=== PATIENT | male | born 1980 | race Caucasian/White ===

== ENCOUNTER → 2019-03-21 17:15 | Outpatient (CLI) | payer BC, SELFPAY ==
[2019-03-21 17:43] LABS: Microscopic, Urine URINE MICROSCOPIC (MICROSCOPIC)
[2019-03-21 18:02] LABS: Appearance,Urine CLEAR (Clear); Basophils % 0.1 % (0.1-2.0); Bilirubin,Urine Negative (Negative); Blood, Urine Negative (Negative); Color,Urine YELLOW (Yellow); Eosinophils % 0.3 % (0.1-12.0); Glucose,Urine (UA) Negative (Negative); Hematocrit 48.6 % (42.0-52.0); Hemoglobin 16.2 g/dL (14.1-18.0); Ketones,Urine TRACE (Negative); Leukocyte Esterase,Urine Negative (Negative); Lymphocytes # 1.1 K/mm3 (0.7-4.5); Lymphocytes % 10.2 % (10-50); Mean Corpuscular HGB Conc 33.4 g/dL (31.8-35.4); Mean Corpuscular Hemoglobin 33.7 pg (27.0-31.2); Mean Corpuscular Volume 101.1 fl (80-94); Mean Platelet Volume 8.3 fl (7.4-10.4); Monocytes # 0.7 K/mm3 (0.1-1.0); Monocytes % 6.4 % (1.7-9.3); Neutrophils # 8.7 K/mm3 (1.8-7.8); Nitrate,Urine Negative (Negative); Platelet Count 324 K/mm3 (142-424); Protein,Urine Negative (Negative); Red Blood Count 4.81 M/mm3 (4.60-6.20); Red Cell Distribution Width 12.9 % (11.5-17.5); Specific Gravity, Urine 1.015 (1.005-1.030); Urobilinogen,Urine 0.2 EU/dl (0.2); White Blood Count 10.5 K/mm3 (4.8-10.8)
[2019-03-21 18:17] LABS: Bacteria,Urine Trace /lpf; Squamous Epithelial Cell,Urine Occasional #/hpf (0-5); WBC,Urine Occasional #/hpf (0-3)
[2019-03-21 18:31] LABS: Alanine Aminotransferase 32 U/L (12-78); Albumin Level 4.4 gm/dL (3.4-5.0); Albumin/Globulin Ratio 1.2 (1.1-1.8); Alkaline Phosphatase 69 U/L (46-116); Anion Gap 15.8 mEq/L (5-15); Aspartate Amino Transferase 29 U/L (15-37); Bilirubin,Total 0.7 mg/dL (0.2-1.0); Blood Urea Nitrogen 10 mg/dL (7-18); Calcium 9.4 mg/dL (8.5-10.1); Carbon Dioxide 29 mmol/L (21.0-32.0); Chloride 99 mmol/L (98-107); Creatinine,Serum 1.04 mg/dL (0.70-1.30); Estimated Glomerular Filt Rate 80 ml/min (>60); GFR (African American) 96 ML/MIN (>60); Globulin 3.6 gm/dl (1.3-3.2); Glucose 92 mg/dL (74-106); Potassium 4.8 mmoL/L (3.5-5.1); Sodium 139 mmol/L (136-145); Thyroid Stimulating Hormone 1.42 uIU/ml (0.358-3.740)
[2019-03-23 08:13] LABS: Hep A Ab, IgM Negative (Negative); Hepatitis B Core Antibody IgM Negative (Negative); Hepatitis B Surface Antigen Negative (Negative)
[2019-03-24 04:19] LABS: HIV Screen 4th Generation wRfx Non Reactive (Non Reactive); Hepatitis C Antibody <0.1 s/co ratio (0.0-0.9); PSA, Free 0.47 ng/mL; Rapid Plasma Reagin Ab Titer Non Reactive (NonRea<1:1); Vitamin D 25 Hydroxy 50.1 ng/mL (30.0-100.0)
== END ==
PROVIDERS: Visit Provider Nurse Practitioner Family
DX: I10 Essential (primary) hypertension (principal); R53.83 Other fatigue; Z20.2 Contact with and (suspected) exposure to infections with a predominantly sexual mode of transmission
CPT/HCPCS: 80053; 80074; 81001; 82652; 84153; 84154; 84443; 85025; 86592; 86703; G0432